=== PATIENT | male | born 2005 | race Caucasian/White ===

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

== ENCOUNTER 2024-07-24 16:40 | Emergency (ER) | payer BC, SELFPAY ==
--- NOTE | ~2024-07-24 | XR_ITS ---
XR hand RT min 3V Ordering provider: Pérez Alonso MD History: . Swelling and Deformity . Comparison: None. FINDINGS: BONES: No acute fracture or dislocation. JOINT SPACES: Normal. SOFT TISSUES: Normal. IMPRESSION: No acute osseous abnormality right hand. Reviewed, dictated and finalized at location A. 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
[2024-07-24 17:10] VITALS: BP 127/47; PULSE 75; RESP 18; TEMP 36.5; O2SAT 99
--- NOTE | 2024-07-24 18:57 | ED.UPPEXIN ---
HPI - Extremity Injury (Upper) General Chief Complaint: Extremity Injury, Upper Stated Complaint: Right Hand Injury Time Seen by Provider: 07/24/24 18:16 Source: patient Mode of arrival: ambulatory Limitations: no limitations History of Present Illness HPI narrative: Patient is a 18-year-old male who presents the ED with report of right hand pain. Patient reports he punched a brick wall several times yesterday while angry. He complains of pain to his right hand, particularly his right 3rd knuckle. Has some swelling and bruising. Some small abrasions present. Tetanus up-to-date. Denies numbness. Denies any other injuries. Related Data Allergies Allergy/AdvReac Type Severity Reaction Status Date / Time No Known Allergies Allergy Verified 07/24/24 18:25 Review of Systems Review of Systems: All systems reviewed & are unremarkable except as noted in HPI. All systems reviewed & are unremarkable except as noted in HPI and below Exam Narrative: GENERAL: Well appearing, obese with BMI of 30.6, non-toxic, in no acute distress. HEAD: Normocephalic, atraumatic. RESPIRATORY: Airway patent, respirations nonlabored. CARDIOVASCULAR: Regular rate and rhythm. Radial pulses intact. MUSCULOSKELETAL: Moves all extremities. Some swelling, bruising, focal tenderness to palpation over right 3rd metacarpal and MCP joint. Scattered abrasions along finger and over MCP joint. No active bleeding or drainage. Sensation intact. Capillary refill intact. SKIN: Warm, dry, normal color. NEURO: A&O X3. Speech clear. PSYCHIATRIC: Appropriate mood and affect. Normal interaction. Course Vital Signs Vital signs: Vital Signs Temperature 97.7 F 07/24/24 17:10 Pulse Rate 75 07/24/24 17:10 Respiratory Rate 18 07/24/24 17:10 Blood Pressure 127/47 L 07/24/24 17:10 Pulse Oximetry 99 07/24/24 17:10 Oxygen Delivery Room Air 07/24/24 17:10 Temperature 97.7 F 07/24/24 17:10 Pulse Rate 75 07/24/24 17:10 Respiratory Rate 18 07/24/24 17:10 Blood Pressure 127/47 L 07/24/24 17:10 Pulse Oximetry 99 07/24/24 17:10 Oxygen Delivery Room Air 07/24/24 17:10 MDM - Extremity Injury (Upper) MDM Narrative Medical decision making narrative: Patient's injury is consistent with musculoskeletal etiology. No signs of neurologic or vascular compromise on physical examination. Compartments are soft without signs of compartment syndrome. XR of right hand negative. No fracture. Abrasions were cleansed and covered with antibiotic ointment/bandage. Ji bandage given. Pain is consistent with hand contusion/sprain. Patient is felt to be stable for discharge home and further outpatient management and treatment. Discussed rice therapy, strict return precautions. He agrees with plan. Discharged in stable condition. Tetanus up-to-date Medical Records Attestation: I reviewed the patient's medical records. Imaging Data Attestation: I personally reviewed and interpreted this imaging study as follows: Radiologist's impression: ITS Impressions Hand X-Ray 07/24/24 17:40 IMPRESSION: No acute osseous abnormality right hand. Discharge Plan Discharge Clinical Impression: Contusion of right hand including fingers Qualifiers: Encounter type: initial encounter Qualified Code(s): S60.221A - Contusion of right hand, initial encounter Patient Disposition: Home, Self-Care Condition: Stable Instructions: Antibiotic Form, Hand Sprain (ED) Additional Instructions: Recommend ice to hand, JI bandage for compression and support, Tylenol/Ibuprofen as needed for pain. Apply antibiotic ointment to abrasions. Follow up with primary care for further evaluation if needed. Patient Language: [place] Prescriptions: No Action sulfamethoxazole-trimethoprim 800-160 mg tablet 1 tablet PO Q12H Qty: 14 0RF Follow-up/Referrals: PHYSICIAN,[employer] [Primary Care Provider] - Stand Alone Forms: Work/School Release IP Time of Disposition: 18:59
== END 2024-07-24 19:19 | disposition home or self-care (01) ==
PROVIDERS: Emergency Provider Physician Assistant
DX: S60.221A Contusion of right hand, initial encounter (principal); S60.031A Contusion of right middle finger without damage to nail, initial encounter; W22.09XA Striking against other stationary object, initial encounter
CPT/HCPCS: 73130; 99283